=== PATIENT | female | born 1990 | race Caucasian/White ===

== ENCOUNTER 2017-01-02 19:14 | Emergency (ER) | payer OTHER ==
[2017-01-02] MEDS ORDERED: NALOXONE 2 MG/2 ML SYRINGE ONE (20:02)
[2017-01-02] MEDS ORDERED: SODIUM CHLORIDE 0.9% 1,000 ML ONE (20:10)
[2017-01-02] MEDS ORDERED: KETOROLAC 30 MG/ML VIAL ONE (20:10)
[2017-01-02] MEDS ORDERED: ONDANSETRON 4 MG VIAL ONE (20:10)
== END 2017-01-02 22:08 | disposition home or self-care (01) ==
LOC: ER 19:14
DX: R11.2 Nausea with vomiting, unspecified (principal); K59.00 Constipation, unspecified; R10.9 Unspecified abdominal pain; D72.829 Elevated white blood cell count, unspecified; F17.210 Nicotine dependence, cigarettes, uncomplicated
CPT/HCPCS: 36415; 74176; 80053; 81001; 83690; 84703; 85025; 87088; 96361; 96374; 96375